=== PATIENT | female | born 1940 | race Caucasian/White ===

== ENCOUNTER 2017-08-20 06:52 | Inpatient (IN) | payer BC, OTHER ==
[2017-08-20 07:08] VITALS: BMI 22.6
[2017-08-20] MEDS ORDERED: ONDANSETRON 4 MG/2 ML VIAL IVPB ONE ×2 (07:12→08:36)
[2017-08-20] MEDS ORDERED: morphine CARPU-JECT 4 MG/1 ML DISP.SYRIN IVPUSH ONE (07:13)
[2017-08-20] MEDS ORDERED: morphine SULFATE 4 MG/ML VIAL ONE (07:14)
[2017-08-20] MEDS ORDERED: ONDANSETRON 4 MG/2 ML VIAL ONE ×2 (07:14→08:36)
--- NOTE | 2017-08-20 07:21 | PDOC ---
History of Present Illness - General Chief Complaint: Injury Stated Complaint: TRIPPED AND FELL INJURING RIGHT HIP Time Seen by Provider: 08/20/17 07:03 - History of Present Illness Initial Comments: 08/20/17 08:00 Chief complaint: Hip injury History of present illness: Patient fell and injured her right hip. Complains of pain over the greater trochanter. Unable to ambulate. Staff at the half-way states that she tripped on a carpet, there was no loss of consciousness, and no sign of injury to the head or neck. Because of dementia, the patient is unable to recall the fall. Review of systems: The patient appears alert in no half to adequately describe her physical symptoms. She denies pain or injury to the head neck chest abdomen spine pelvis or extremities. She denies chest pain, shortness of breath, abdominal pain, vomiting, diarrhea, visual or focal neurologic symptoms, urinary tract symptoms, vaginal bleeding or discharge. She admits mild nausea. Past medical history: According to the medical record obtained from the half-way, the patient has alcoholic dementia, depression, but no neurological or cardiovascular disease. Social history: longterm resident, mild to moderate dementia, daughter lives nearby and visits frequently. No known tobacco alcohol or drug use currently Family history: Unavailable Physical exam: Alert, mildly confused but oriented to person and place, but not time. Patient is not drowsy or lethargic. She is well-developed well-nourished in no acute distress at rest, but with pain in the right hip with any movement. Head atraumatic. PERRLA 4 mm, fundi benign, ENT clear Neck without tenderness or deformity, full range of motion without pain Chest clear to P&A. No chest wall or rib cage tenderness or deformity CV 60 and regular. S1 and S2 normal without murmur rub or gallop pulses full and symmetric no JVD or edema no bruits Abdomen soft nontender without mass or organomegaly Neurological C2 to 12 intact. Strength full and symmetric. No focal sensory or motor deficits. He not assessed Extremities: There is shortening and external rotation of the right leg. There is tenderness over the greater trochanter, but without obvious deformity, swelling, or hematoma. Internal and external rotation of the hip are limited due to pain. There are no distal sensory or motor deficits, and pulses are full Skin clear, no rash, adequate turgor and wet mucous membranes No CCE Impression: Mechanical fall, no evidence of head or neck injury, probable fracture of the right hip. Plan: X-ray and further orthopedic management depending on results. Past History - Past Medical History Allergies/Adverse Reactions: Allergies Allergy/AdvReac Type Severity Reaction Status Date / Time No Known Allergies Allergy Verified 08/20/17 06:54 Home Medications: Ambulatory Orders Docusate Sodium 100 mg PO DAILY 08/20/17 Fluoxetine HCl [Prozac -] 10 mg PO DAILY 08/20/17 Rivastigmine Tartrate [Rivastigmine] 4.5 mg PO BID 08/20/17 COPD: No GI Disorders: Yes (CONSTIPATION) Other medical history: DEPRESSION/ALCOHOLIC DEMENTIA - Suicide/Smoking/Psychosocial Hx Smoking History: Unknown if ever smoked Have you smoked in the past 12 months: No Information on smoking cessation initiated: No Hx Alcohol Use: No Drug/Substance Use Hx: No *Physical Exam - Vital Signs Last Vital Signs Temp Pulse Resp BP Pulse Ox 97.8 F 60 16 158/85 99 08/20/17 07:00 08/20/17 07:00 08/20/17 07:00 08/20/17 07:00 08/20/17 07:00 ED Treatment Course - LABORATORY CBC & Chemistry Diagram: 08/20/17 07:14 08/20/17 07:14 Medical Decision Making - Medical Decision Making 08/20/17 08:21 X-ray reviewed: Fracture of the femoral neck. Chest x-ray clear. Daughter was informed by phone. Dr. Urbina and orthopedist on-call were paged. Patient administered Zofran and morphine. Good pain relief. Comfortable and in no distress awaiting admission. 08/20/17 08:48 EKG: Normal sinus rhythm, normal axes and intervals, no ST-T wave changes, normal EKG Dr. Urbina present in the ER, performed preop evaluation. With her instructions , patient admitted to hospitalist service. Dr. Chambers, orthopedist, contacted for consultation. *DC/Admit/Observation/Transfer Diagnosis at time of Disposition: Hip fracture - Discharge Dispostion Admit: Yes - Referrals - Patient Instructions - Post Discharge Activity
[2017-08-20 07:41] LABS: BASO % 0.5 % (0-2.0); EOS % 1.8 % (0-4.5); HEMATOCRIT 39.8 % (32.4-45.2); HEMOGLOBIN 13.1 GM/dl (10.7-15.3); LYMPH % 24.7 % (8-40); MCH 29.6 pg (25.7-33.7); MEAN CELL VOLUME 89.6 fl (80-96); MEAN PLT VOLUME 8.6 fl (7.5-11.1); MONO % 5.3 % (3.8-10.2); NEUT % 67.7 % (42.8-82.8); PLATELET COUNT 358 K/MM3 (134-434); RBC 4.44 M/mm3 (3.60-5.2); WHITE BLOOD COUNT 13.9 K/mm3 (4.0-10.8)
[2017-08-20 07:53] LABS: ALK PHOS 59 U/L (32-92); ANION GAP 5 (8-16); BLOOD UREA NITROGEN 14 mg/dl (7-18); CALCIUM 9.4 mg/dl (8.4-10.2); CHLORIDE 101 mmol/L (98-107); CO2 26 mmol/L (22-28); CREATININE 0.8 mg/dl (0.6-1.3); GLUCOSE,RANDOM 186 mg/dl (74-106); SGOT/AST 23 U/L (10-42); SGPT/ALT 13 U/L (10-40); SODIUM 132 mmol/L (136-145); TOT PROT 7.2 g/dl (6.4-8.3)
[2017-08-20 08:03] LABS: PH,URINE 5.5 (4.5-8); URINE APPEARANCE Clear; URINE BILIRUBIN Negative (NEGATIVE); URINE GLUCOSE (UA) Negative (NEGATIVE); URINE KETONE Negative (NEGATIVE); URINE LEUK ESTERASE Negative (NEGATIVE); URINE NITRITE Negative (NEGATIVE); URINE PROTEIN Negative (NEGATIVE); URINE UROBILINOGEN 0.2 (0.2-1.0)
[2017-08-20 08:11] LABS: BILIRUBIN,TOTAL 0.5 mg/dl (0.2-1.0)
[2017-08-20 08:15] LABS: URINE BLOOD Trace-lysed (NEGATIVE); URINE COLOR YELLOW
--- NOTE | 2017-08-20 08:49 | HP ---
Admitting History and Physical - Admission Chief Complaint: fall and pain in nara right hip History of Present Illness: 77 yo female with PMH of Depression and Memory loss, was admitted after a fall in [facility] with consequent fracture of the right hip. The patient does not recall the circumstances under which she fell, but thisis not unusual for the patient who has at baseline poor short term memory. 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 Hepatobiliary: Yes: Cholelithiasis - Smoking History Smoking history: Unknown if ever smoked Have you smoked in the past 12 months: No - Alcohol/Substance Use Hx Alcohol Use: No Home Medications - Allergies Allergies/Adverse Reactions: Allergies Allergy/AdvReac Type Severity Reaction Status Date / Time No Known Allergies Allergy Verified 08/20/17 06:54 - Home Medications Home Medications: Ambulatory Orders Docusate Sodium 100 mg PO DAILY 08/20/17 Fluoxetine HCl [Prozac -] 10 mg PO DAILY 08/20/17 Rivastigmine Tartrate [Rivastigmine] 4.5 mg PO BID 08/20/17 Review of Systems - Review of Systems Constitutional: reports: No Symptoms (pain in the right hip) Eyes: reports: No Symptoms HENT: reports: No Symptoms Neck: reports: No Symptoms Cardiovascular: reports: No Symptoms Respiratory: reports: No Symptoms Gastrointestinal: reports: No Symptoms Genitourinary: reports: No Symptoms Breasts: reports: No Symptoms Reported Musculoskeletal: reports: Other (right hip pain) Neurological: reports: No Symptoms Endocrine: reports: No Symptoms Hematology/Lymphatic: reports: No Symptoms Psychiatric: reports: Depression Pain Intensity: 5 Physical Examination Vital Signs: Vital Signs Temperature 97.8 F 08/20/17 07:00 Pulse Rate 60 08/20/17 07:00 Respiratory Rate 16 08/20/17 07:00 Blood Pressure 158/85 08/20/17 07:00 O2 Sat by Pulse Oximetry (%) 99 08/20/17 07:00 Constitutional: Yes: Well Nourished, Calm, Other (mild pain after administration of 4 MG of Morphine , patient i sexamined 2 hour later) HENT: Yes: Atraumatic, Normocephalic Neck: Yes: Supple, Trachea Midline Cardiovascular: Yes: Regular Rate and Rhythm, S1, S2 Respiratory: Yes: Regular, CTA Bilaterally Gastrointestinal: Yes: Normal Bowel Sounds, Soft, Abdomen, Obese. No: Hepatomegaly ...Rectal Exam: Yes: Deferred Breast(s): Yes: WNL Extremities: Yes: Other (right external thigh pain to palpation , external rotyation of nara right lower etxremity and shortening of nara right lower extremity) Edema: No Peripheral Pulses WNL: Yes Integumentary: Yes: WNL Neurological: Yes: Alert, Oriented Psychiatric: Yes: Alert, Oriented Labs: CBC, BMP 08/20/17 07:14 08/20/17 07:14 Imaging - Results Chest X-ray: Other (AL film, no cardiomegaly, no pleural effusion , no infiltrate) X-ray: Other (right hip interthrochanteric fracture) EKG: Other (NSR, 69 b/min,ellis, QRS axis at 60 degrees, good R wave progression , non specific ST T changes) Problem List - Problems (1) Fall on same level, unspecified, initial encounter Assessment/Plan: unsure about circumstances, no LOC Code(s): W18.30XA - FALL ON SAME LEVEL, UNSPECIFIED, INITIAL ENCOUNTER (2) Closed right hip fracture Assessment/Plan: surgical consult the patient is class II ASA medically clear for ORIF NPO pain management Dilaudid Code(s): S72.001A - FRACTURE OF UNSP PART OF NECK OF RIGHT FEMUR, INIT (3) History of short term memory loss Assessment/Plan: alcoholic in etiology the patient ia an ex alcoholic Code(s): Z87.898 - PERSONAL HISTORY OF OTHER SPECIFIED CONDITIONS (4) Depression Code(s): F32.9 - MAJOR DEPRESSIVE DISORDER, SINGLE EPISODE, UNSPECIFIED Assessment/Plan 77 yo feamle s/p fa,ll with RT hip intertrochanteric fracture class II ASA ,medically clear for surgery
[2017-08-20] MEDS ORDERED: D5-1/2NS+10 MEQ KCL - 10 MEQ/1,000 ML INFUS.BAG IV SCH (09:00)
[2017-08-20] MEDS ORDERED: PROCHLORPERAZINE INJECTION 10 MG/2 ML VIAL IVPB PRN (09:05)
--- NOTE | 2017-08-20 09:18 | CON.ORTH ---
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 Hepatobiliary: Yes: Cholelithiasis - Alcohol/Substance Use Hx Alcohol Use: No - Smoking History Smoking history: Unknown if ever smoked Have you smoked in the past 12 months: No Home Medications - Allergies Allergies/Adverse Reactions: Allergies Allergy/AdvReac Type Severity Reaction Status Date / Time No Known Allergies Allergy Verified 08/20/17 06:54 - Home Medications Home Medications: Ambulatory Orders Docusate Sodium 100 mg PO DAILY 08/20/17 Fluoxetine HCl [Prozac -] 10 mg PO DAILY 08/20/17 Rivastigmine Tartrate [Rivastigmine] 4.5 mg PO BID 08/20/17 Physical Exam for Ortho Vital Signs: Vital Signs Temperature 97.8 F 08/20/17 07:00 Pulse Rate 60 08/20/17 07:00 Respiratory Rate 16 08/20/17 07:00 Blood Pressure 158/85 08/20/17 07:00 O2 Sat by Pulse Oximetry (%) 99 08/20/17 07:00 Labs: CBC, BMP 08/20/17 07:14 08/20/17 07:14 INR, PTT INR Cancelled 08/20/17 07:14 - Lower Extremity Hip: Yes: Right, Decreased ROM, Leg Externally Rotated, Leg Shortened, Pain, Swelling, Other (nvi) Imaging - Results X-ray: Image Reviewed Assessment/Plan 77 yo female with PMH of Depression and Memory loss, was admitted after a fall in [facility] with consequent fracture of the right hip. The patient does not recall the circumstances under which she fell, but this is not unusual for the patient who has at baseline poor short term memory. a/p- right displaced femoral neck fx will need right hip hollie Pt is medically cleared OR for today NPO will d/w pts jamshid Fiorella ([facility]) d/w Dr. Chambers
[2017-08-20] MEDS ORDERED: [UNRECOGNIZED DRUG - OTHER] IV SCH (09:30)
[2017-08-20] MEDS ORDERED: DEXTROSE IV SCH (09:30)
[2017-08-20] MEDS ORDERED: POTASSIUM ACETATE IV SCH (09:30)
[2017-08-20 09:38] LABS: EPI CELLS RARE /HPF; URINE RBC 0-2 /hpf (0-3); URINE WBC NONE SEEN (0-5)
[2017-08-20 09:39] LABS: URINE BACTERIA NONE SEEN /hpf (NEGATIVE)
[2017-08-20 09:39] LABS: INR 1.08 (0.82-1.09); PROTHROMBIN TIME (PATIENT) 12.1 SEC (10.2-13.0)
[2017-08-20] MEDS: POTASSIUM CHLORIDE 10 MEQ in DEXTROSE 5%-0.45% SALINE 1,000 ML IVPB SCH ×2 (09:43→22:42)
[2017-08-20] MEDS ORDERED: PANTOPRAZOLE SODIUM 40 MG VIAL ONE (10:18)
[2017-08-20] MEDS: PANTOPRAZOLE SODIUM 40 MG VIAL IVPUSH SCH (10:25)
[2017-08-20] MEDS ORDERED: HYDROmorphone HCL CARPU-JECT 1 MG/1 ML DISP.SYRIN ONE (10:26)
[2017-08-20] MEDS: HYDROmorphone HCL CARPU-JECT 1 MG/1 ML DISP.SYRIN IVPB PRN ×2 (10:30→22:03)
[2017-08-20] MEDS ORDERED: VANCOMYCIN 1,000 MG VIAL (RESTRICTED TO ID ONLY) ONE (13:54)
[2017-08-20] MEDS ORDERED: ceFAZolin SODIUM 1 GM VIAL ONE ×2 (13:54→15:13)
[2017-08-20] MEDS ORDERED: MIDAZOLAM HCL 2 MG/2 ML SINGLE DOSE VIAL ONE (14:36)
[2017-08-20] MEDS ORDERED: PROPOFOL 20 ML ONE (14:44)
[2017-08-20] MEDS ORDERED: VANCOMYCIN 1,000 MG VIAL (RESTRICTED TO ID ONLY) IVPB ONE (15:47)
[2017-08-20] MEDS ORDERED: MAGNESIUM HYDROX 2400MG/30ML ORAL SUSPENSION 30 ML CUP PO PRN (16:01)
[2017-08-20] MEDS ORDERED: MAG HYDROX/AL HYDROX/SIMETH 30 ML UNIT-DOSE CUP PO PRN (16:01)
--- NOTE | 2017-08-20 16:01 | OP ---
Operative Note - Note: Operative Date: 08/20/17 Pre-Operative Diagnosis: displaced right femoral neck fracture Operation: right hip hemiarthroplasty Implants: Gypsy Accolade Hip Samir system: #2 stem, 127 degrees, 46mm head, +4 neck Surgeon: Iker Justin Manager Of Security: Abiel Pompa Anesthesiologist/CYLINDER CHECKER: Jonathan Cruz Anesthesia: Spinal, MAC Specimens Removed: right femoral head Estimated Blood Loss (mls): 75 Drains, Volume Out (mls): 0 Blood Volume Replaced (mls): 0 Fluid Volume Replaced (mls): 700 Operative Report Dictated: Yes
[2017-08-20] MEDS ORDERED: LACTATED RINGERS SOLUTION 1,000 ML IV SCH (16:15)
[2017-08-20] MEDS ORDERED: oxyCODONE HCL 5 MG TABLET PO PRN (16:16)
[2017-08-20] MEDS ORDERED: ONDANSETRON 4 MG/2 ML VIAL IVPUSH PRN (16:16)
[2017-08-20] MEDS ORDERED: PROMETHAZINE HCL 25 MG/1 ML VIAL IVPB PRN (16:16)
[2017-08-20] MEDS: SENNOSIDES/DOCUSATE COMBO (SENNA PLUS) TABLET (UD) PO SCH (22:03)
[2017-08-20] MEDS: CEFAZOLIN 1 GM/D5W 1 GM/50 ML BAG IVPB SCH (22:41)
[2017-08-21] MEDS ORDERED: LACTATED RINGERS SOLUTION 1,000 ML IV SCH (06:00)
[2017-08-21] MEDS: CEFAZOLIN 1 GM/D5W 1 GM/50 ML BAG IVPB SCH (06:23)
[2017-08-21] MEDS: ASPIRIN 325 MG TABLET PO SCH (07:58)
[2017-08-21 08:23] LABS: HEMATOCRIT 31.6 % (32.4-45.2); HEMOGLOBIN 10.4 GM/dl (10.7-15.3); MCH 29.5 pg (25.7-33.7); MEAN CELL VOLUME 89.5 fl (80-96); PLATELET COUNT 268 K/MM3 (134-434); RBC 3.53 M/mm3 (3.60-5.2); RDW 12.9 % (11.6-15.6); WHITE BLOOD COUNT 13.8 K/mm3 (4.0-10.8)
--- NOTE | 2017-08-21 08:54 | OP ---
DATE OF OPERATION: 08/20/2017 PREOPERATIVE DIAGNOSIS: Right displaced femoral neck fracture. POSTOPERATIVE DIAGNOSIS: Right displaced femoral neck fracture. PROCEDURE: Right hip hemiarthroplasty. SURGEON: Iker Justin MD RN BSN: ANNE-MARIE Valladares ANESTHESIOLOGIST: Jonathan Cruz MD ANESTHESIA: Spinal anesthesia with sedation. DRAINS: None. COMPLICATIONS: None. SPECIMENS: Femoral head. BLOOD LOSS: Minimal. BLOOD GIVEN: None. FLUID REPLACEMENT: PlasmaLyte, 700 mL. INDICATIONS: This patient is a 77-year-old female with a preoperative diagnosis of a displaced right femoral neck fracture. After understanding the potential risks, complications, alternatives, and benefits of surgery versus nonsurgical treatment, the patient and her family elected to undergo this procedure, including her daughter, who is her health proxy. All questions and concerns were addressed. They were warned of potential complications potentially exacerbated by her dementia including prosthesis dislocation, inferior ability to ambulate, decreased function, decreased exercise tolerance, poor stair climbing, infection, etc. DESCRIPTION OF PROCEDURE: The patient was brought to the operating room, peripheral IV placed, and IV sedation was given. Ancef 1 g was given. Spinal anesthesia was done. MAC anesthesia was induced. She was placed into the left lateral decubitus position with axillary roll and ample padding throughout. The right lower extremity was prepped and draped in sterile fashion. A curvilinear posterolateral approach incision was marked out with a marking pen. An incision was made with a No. 10 scalpel blade. Subcutaneous hemostasis was achieved with a Bovie cautery. Dissection done down through the superficial fascia down to the hip bursa through the bursa. The leg was put into a position of adduction and internal rotation, putting pressure on the posterior structures. The short external rotators were taken down off the posterior aspect of the femur. A T-capsulotomy was performed. The fractured hematoma was evacuated. A rongeur was used through soft tissue debris. Template was placed in place, marked with Bovie cautery, and the oscillating saw used to make the provisional cut. Bone was removed. Next, corkscrew was used to remove the femoral head. The acetabulum looked absolutely fine. A small amount of fat was removed. A 46 sized head was trialed. This seemed to be excellent as far as suction and fit. Next, the proximal femur was prepared in the standard fashion, first with the box osteotome and then the canal finder, then sequential broaches. The No. 2 sized broach went down to the appropriate level. It was extremely stable. There was no rotation, and the calcar reamer did not even need to be used. We trialed with a standard neck and 46 head. Although stability was excellent, the leg felt slightly short, and therefore we put on a +4 neck, and it seemed to correct this with the same amount of stability. Next, the stem was removed, the canal checked for debris, and a standard Sedley size No. 2 accolade stem was placed down in the standard fashion with the mallet. Again, it was trialed, it seemed to be quite good, and so, the No. 2, 127-degree stem, with a 46-mm head with a 4+ neck was placed hip down onto the Krystian taper, quite stable. It was reduced. Again, the patient had excellent stability in all planes, and leg length was equal. The area was irrigated and washed out, and the posterior capsule closed with No. 1 Vicryl suture. The deep fascia closed with No. 1 Vicryl, the deep dermal layer closed with 2-0 Vicryl, and final skin reapproximation was done with a running subcuticular 3-0 V-Loc suture. The area was then washed and dried, covered with SwiftSet Skin Glue and Aquacel dressing. Total operative time was 35 minutes. There were no complications during the case. The patient tolerated the procedure quite well and was brought to the regular recovery room in stable condition. Mairtza [id number]
--- NOTE | 2017-08-21 09:17 | PN ---
Physical Exam: SUBJECTIVE: Patient seen and examined, sitting in bedside chair, reports pain to the right lower extremity upon movement, patient denies any paresthesia to the extremity. OBJECTIVE: Patient is a 77 yo female with PMH of Depression and Memory loss. Patient was admitted from the emergency department for a right femoral neck fracture, s/p right hip hemiarthoplasty, Dr Justin. Vital Signs Period Temp Pulse Resp BP Sys/Rey Pulse Ox Last 24 Hr 97.8 F-100.0 F 59-114 10-18 81-142/39-74 91-100 GENERAL: The patient is awake, alert, and fully oriented, in no acute distress. HEAD: Normal with no signs of trauma. EYES: PERRL, extraocular movements intact, sclera anicteric, conjunctiva clear. No ptosis. ENT: Ears normal, nares patent, oropharynx clear without exudates, moist mucous membranes. NECK: Trachea midline, full range of motion, supple. LUNGS: Breath sounds equal, clear to auscultation bilaterally, no wheezes, no crackles, no accessory muscle use. HEART: Regular rate and rhythm, S1, S2 without murmur, rub or gallop. ABDOMEN: Soft, nontender, nondistended, normoactive bowel sounds, no guarding, no rebound, no hepatosplenomegaly, no masses. EXTREMITIES: 2+ pulses, warm, well-perfused, no edema. RIGHT LOWER EXTREMITY: aguacel dressing CDI NEUROLOGICAL: Cranial nerves II through XII grossly intact. Normal speech, gait not observed. PSYCH: Normal mood, normal affect. SKIN: Warm, dry, normal turgor, no rashes or lesions noted Laboratory Results - last 24 hr 08/20/17 08/20/17 08/20/17 07:33 08:14 08:14 WBC RBC Hgb Hct MCV MCH MCHC RDW Plt Count MPV PT with INR 12.1 INR 1.08 Urine RBC 0-2 Urine WBC None seen Ur Epithelial Cells Rare Urine Bacteria None seen Blood Type O POSITIVE Antibody Screen Negative 08/20/17 08/21/17 08:14 07:30 WBC 13.8 H RBC 3.53 L D Hgb 10.4 L D Hct 31.6 L D MCV 89.5 MCH 29.5 MCHC 33.0 RDW 12.9 Plt Count 268 MPV 8.0 PT with INR INR Urine RBC Urine WBC Ur Epithelial Cells Urine Bacteria Blood Type O POSITIVE Antibody Screen Active Medications Generic Name Dose Route Start Last Admin Trade Name Freq PRN Reason Stop Dose Admin Al Hydroxide/Mg Hydroxide 30 ml 08/20/17 16:01 Mylanta Oral Suspension - PO Q4H PRN DYSPEPSIA Aspirin 325 mg 08/21/17 08:00 Asa - PO DAILY@0800 [facility] Fentanyl 50 mcg 08/20/17 16:16 Sublimaze Injection - IVPUSH [id number] PRN PAIN-PACU ORDER X 4 DOSES ONLY Hydromorphone HCl 1 mg 08/20/17 08:56 08/20/17 22:03 Dilaudid Injection - IVPB 1 mg Q4H PRN Administration PAIN LEVEL 6-10 Potassium Chloride 10 meq/ 1,005 mls @ 75 mls/hr 08/20/17 09:30 08/20/17 22: 42 Dextrose/Sodium Chloride IVPB 75 mls/hr Q13H MARYSE Administration Lactated Ringer's 1,000 mls @ 125 mls/hr 08/21/17 06:00 08/21/17 06:23 Lactated Ringers Solution IV Not Given ASDIR MARYSE Magnesium Hydroxide 30 ml 08/20/17 16:01 Milk Of Magnesia - PO PRN PRN CONSTIPATION Multivitamins/Minerals/Vitamin C 1 tab 08/21/17 10:00 Tab-A-Vit - PO DAILY [facility] Ondansetron HCl 4 mg 08/20/17 16:16 Zofran Injection IVPUSH Q6H PRN NAUSEA AND/OR VOMITING Pantoprazole Sodium 40 mg 08/20/17 10:00 08/20/17 10:25 Protonix Iv IVPUSH 40 mg DAILY [facility] Administration Pantoprazole Sodium 40 mg 08/21/17 10:00 Protonix - PO DAILY [facility] Prochlorperazine Edisylate 2.5 mg 08/20/17 09:05 08/20/17 09:23 Compazine Injection - IVPB 2.5 mg Q4H PRN Administration NAUSEA AND/OR VOMITING Promethazine HCl 12.5 mg 08/20/17 16:16 Phenergan Injection - IVPB Q6H PRN NAUSEA-FOR RESCUE AFTER 15 MIN Rivastigmine Tartrate 1.5 mg 08/21/17 10:00 Exelon (Nf) - PO BID MARYSE Senna/Docusate Sodium 2 tablet 08/20/17 22:00 08/20/17 22:03 Pericolace - PO 2 tablet BID MARYSE Administration IMAGING Chest xray: AL film, no cardiomegaly, no pleural effusion , no infiltrate xray right hip: interthrochanteric fracture EKG: NSR, 69 b/min,ellis, QRS axis at 60 degrees, good R wave progression, non specific ST T changes ASSESSMENT/PLAN: 1) MS right hip hemiarthroplasty, POD #1 (Nhan) - prn pain medication - PT as per orthopedist - hgb 10.4 stable close monitoring 2) neuro short term memory loss - continue exelon (home dose) - fall precautions f/e/n - regular diet - replete lytes prn ppx - asa 325mg daily - protonix - scd/radha - physical therapy dispo: pt requires inpatient admission, plan discussed with Daughter Fiorella and aggress with plan Visit type - Emergency Visit Emergency Visit: Yes ED Registration Date: 08/20/17 Care time: The patient presented to the Emergency Department on the above date and was hospitalized for further evaluation of their emergent condition. - New Patient This patient is new to me today: No - Critical Care Critical Care patient: No - Discharge Referral Referred to [facility] Med P.C.: No
[2017-08-21] MEDS: MULTIVITAMINS (DAILY MVI) TABLET (FP) PO SCH (09:59)
[2017-08-21] MEDS: PANTOPRAZOLE 40 MG TABLET (FP) PO SCH (09:59)
[2017-08-21] MEDS: SENNOSIDES/DOCUSATE COMBO (SENNA PLUS) TABLET (UD) PO SCH ×2 (09:59→21:41)
[2017-08-21] MEDS: PANTOPRAZOLE SODIUM 40 MG VIAL IVPUSH SCH (10:00)
[2017-08-21 10:43] LABS: HEMATOCRIT 33.4 % (32.4-45.2); HEMOGLOBIN 11.1 GM/dl (10.7-15.3); LYMPH % 6.5 % (8-40); MCH 29.4 pg (25.7-33.7); MCHC 33.2 g/dl (32.0-36.0); MEAN CELL VOLUME 88.8 fl (80-96); MEAN PLT VOLUME 8.4 fl (7.5-11.1); MONO % 6.7 % (3.8-10.2); NEUT % 86.8 % (42.8-82.8); PLATELET COUNT 268 K/MM3 (134-434); RBC 3.76 M/mm3 (3.60-5.2); RDW 12.6 % (11.6-15.6); WHITE BLOOD COUNT 14.3 K/mm3 (4.0-10.8)
[2017-08-21 10:50] LABS: ALK PHOS 47 U/L (32-92); ANION GAP 5 (8-16); BILIRUBIN,TOTAL 0.6 mg/dl (0.2-1.0); BLOOD UREA NITROGEN 8 mg/dl (7-18); CALCIUM 8.5 mg/dl (8.4-10.2); CHLORIDE 102 mmol/L (98-107); CO2 25 mmol/L (22-28); GLUCOSE,RANDOM 160 mg/dl (74-106); MAGNESIUM 1.6 mg/dL (1.8-2.4); POTASSIUM 3.7 mmol/L (3.5-5.1); SGOT/AST 32 U/L (10-42); SGPT/ALT 10 U/L (10-40); SODIUM 132 mmol/L (136-145); TOT PROT 5.8 g/dl (6.4-8.3)
--- NOTE | 2017-08-21 11:07 | PN ---
Progress Note, Physician Chief Complaint: s/p right him hemiarthroplasty History of Present Illness: post op day one. - Current Medication List Current Medications: Active Medications Al Hydroxide/Mg Hydroxide (Mylanta Oral Suspension -) 30 ml PO Q4H PRN PRN Reason: DYSPEPSIA Aspirin (Asa -) 325 mg PO DAILY@0800 [facility] Last Admin: 08/21/17 07:58 Dose: 325 mg Fentanyl (Sublimaze Injection -) 50 mcg IVPUSH [id number] PRN PRN Reason: PAIN-PACU ORDER X 4 DOSES ONLY Hydromorphone HCl (Dilaudid Injection -) 1 mg IVPB Q4H PRN PRN Reason: PAIN LEVEL 6-10 Last Admin: 08/20/17 22:03 Dose: 1 mg Potassium Chloride 10 meq/ (Dextrose/Sodium Chloride) 1,005 mls @ 75 mls/hr IVPB Q13H [facility] Last Admin: 08/20/17 22:42 Dose: 75 mls/hr Magnesium Hydroxide (Milk Of Magnesia -) 30 ml PO PRN PRN PRN Reason: CONSTIPATION Multivitamins/Minerals/Vitamin C (Tab-A-Vit -) 1 tab PO DAILY [facility] Last Admin: 08/21/17 09:59 Dose: 1 tab Ondansetron HCl (Zofran Injection) 4 mg IVPUSH Q6H PRN PRN Reason: NAUSEA AND/OR VOMITING Pantoprazole Sodium (Protonix Iv) 40 mg IVPUSH DAILY [facility] Last Admin: 08/20/17 10:25 Dose: 40 mg Pantoprazole Sodium (Protonix -) 40 mg PO DAILY [facility] Last Admin: 08/21/17 09:59 Dose: 40 mg Prochlorperazine Edisylate (Compazine Injection -) 2.5 mg IVPB Q4H PRN PRN Reason: NAUSEA AND/OR VOMITING Last Admin: 08/20/17 09:23 Dose: 2.5 mg Promethazine HCl (Phenergan Injection -) 12.5 mg IVPB Q6H PRN PRN Reason: NAUSEA-FOR RESCUE AFTER 15 MIN Rivastigmine Tartrate (Exelon (Nf) -) 1.5 mg PO BID [facility] Senna/Docusate Sodium (Pericolace -) 2 tablet PO BID [facility] Last Admin: 08/21/17 09:59 Dose: 2 tablet - Objective Vital Signs: Vital Signs Temperature 100.0 F H 08/21/17 06:00 Pulse Rate 108 H 08/21/17 06:00 Respiratory Rate 18 08/21/17 07:59 Blood Pressure 117/71 08/21/17 06:00 O2 Sat by Pulse Oximetry (%) 94 L 08/21/17 07:59 Cardiovascular: Yes: WNL Respiratory: Yes: WNL Gastrointestinal: Yes: WNL Labs: INR, PTT INR 1.08 (0.82-1.09) 08/20/17 08:14 Assessment/Plan patient doing well, pain controlled, no nausea vomiting questions about anesthesia or anesthetic complications. Dept of anesthesia will sign off care at this time.
[2017-08-21 11:11] LABS: CREATININE 0.8 mg/dl (0.6-1.3)
--- NOTE | 2017-08-21 11:34 | PN ---
Progress Note (short form) - Note Progress Note: AVSS COMFORTABLE BANDAGES DRY AND INTACT CALF SOFT AND NT NVI IMP: SEVERINO WELL PLAN: OOB, PT, DC PLANNING
[2017-08-21] MEDS ORDERED: HYDROmorphone HCL CARPU-JECT 1 MG/1 ML DISP.SYRIN IVPB PRN (12:43)
--- NOTE | 2017-08-21 12:57 | EKG ---
Test Reason : Blood Pressure : / mmHG Vent. Rate : 069 BPM Atrial Rate : 069 BPM P-R Int : 160 ms QRS Dur : 074 ms QT Int : 410 ms P-R-T Axes : 073 058 078 degrees QTc Int : 439 ms NORMAL SINUS RHYTHM NORMAL ECG NO PREVIOUS ECGS AVAILABLE Confirmed by RORO JARRELL MD ([id number]) on 08/21/2017 12:57:04 PM Referred By: CONTRERAS CHARLES Confirmed By:RORO JARRELL MD
--- NOTE | 2017-08-21 12:58 | EKG ---
Test Reason : Blood Pressure : / mmHG Vent. Rate : 084 BPM Atrial Rate : 084 BPM P-R Int : 160 ms QRS Dur : 072 ms QT Int : 372 ms P-R-T Axes : 061 037 062 degrees QTc Int : 439 ms NORMAL SINUS RHYTHM NORMAL ECG NO PREVIOUS ECGS AVAILABLE Confirmed by RORO JARRELL MD ([id number]) on 08/21/2017 12:58:13 PM Referred By: MELODIE GROSS Confirmed By:RORO JARRELL MD
[2017-08-21] MEDS ORDERED: MAGNESIUM SULFATE IN WATER 2 GM/50 ML IVPB IVPB ONE (13:15)
[2017-08-21] MEDS ORDERED: PT OWN MED DRAWER 7, Y5N ONE ×3 (16:57→21:45)
[2017-08-21] MEDS: RIVASTIGMINE TARTRATE 1.5 MG CAPSULE PO SCH (21:41)
[2017-08-22] MEDS: oxyCODONE HCL 5 MG TABLET PO PRN ×2 (05:15→09:50)
[2017-08-22 08:27] LABS: HEMATOCRIT 31.2 % (32.4-45.2); HEMOGLOBIN 10.2 GM/dl (10.7-15.3); MCH 29.3 pg (25.7-33.7); MCHC 32.6 g/dl (32.0-36.0); MEAN CELL VOLUME 89.7 fl (80-96); MEAN PLT VOLUME 8.4 fl (7.5-11.1); PLATELET COUNT 255 K/MM3 (134-434); RBC 3.48 M/mm3 (3.60-5.2); WHITE BLOOD COUNT 16.7 K/mm3 (4.0-10.8)
[2017-08-22] MEDS ORDERED: PT OWN MED DRAWER 7, Y5N ONE (09:47)
[2017-08-22] MEDS: SENNOSIDES/DOCUSATE COMBO (SENNA PLUS) TABLET (UD) PO SCH (09:49)
[2017-08-22] MEDS: PANTOPRAZOLE 40 MG TABLET (FP) PO SCH (09:49)
[2017-08-22] MEDS: MULTIVITAMINS (DAILY MVI) TABLET (FP) PO SCH (09:49)
[2017-08-22] MEDS: ASPIRIN 325 MG TABLET PO SCH (09:49)
[2017-08-22] MEDS: RIVASTIGMINE TARTRATE 1.5 MG CAPSULE PO SCH (09:50)
--- NOTE | 2017-08-22 09:57 | PN ---
Progress Note (short form) - Note Progress Note: Ortho Pt seen and examined s/p right hip hollie pod #2 Selected Entries 08/22/17 06:00 Temperature 98.5 F Pulse Rate 117 H Respiratory 18 Rate Blood Pressure 115/66 Laboratory Tests 08/22/17 08:00 WBC 16.7 H Hgb 10.2 L Hct 31.2 L Plt Count 255 dressing c/d/i, calf soft, nt nvi a/p PT wbat dvt ppx pain control d/c planning
--- NOTE | 2017-08-22 13:31 | DS ---
Physical Exam: SUBJECTIVE: Patient seen and examined, reports minimal pain to the right lower extremity upon movement. OBJECTIVE: 77 yo female with PMH of Depression and Memory loss, was admitted after a fall in [place] with consequent fracture of the right hip. The patient does not recall the circumstances under which she fell, but thisis not unusual for the patient who has at baseline poor short term memory. Vital Signs Period Temp Pulse Resp BP Sys/Rey Pulse Ox Last 24 Hr 98.5 F-98.9 F 83-117 16-18 93-115/55-66 94-95 PHYSICAL EXAM GENERAL: The patient is awake, alert, and fully oriented, in no acute distress. HEAD: Normal with no signs of trauma. EYES: PERRL, extraocular movements intact, sclera anicteric, conjunctiva clear. No ptosis. ENT: Ears normal, nares patent, oropharynx clear without exudates, moist mucous membranes. NECK: Trachea midline, full range of motion, supple. LUNGS: Breath sounds equal, clear to auscultation bilaterally, no wheezes, no crackles, no accessory muscle use. HEART: Regular rate and rhythm, S1, S2 without murmur, rub or gallop. ABDOMEN: Soft, nontender, nondistended, normoactive bowel sounds, no guarding, no rebound, no hepatosplenomegaly, no masses. EXTREMITIES: 2+ pulses, warm, well-perfused, no edema. RIGHT LOWER EXTREMITY: aguacel dressing CDI NEUROLOGICAL: Cranial nerves II through XII grossly intact. Normal speech, gait not observed. PSYCH: Normal mood, normal affect. SKIN: Warm, dry, normal turgor, no rashes or lesions noted LABS Laboratory Results - last 24 hr CBC, BMP 08/22/17 08:00 08/21/17 09:55 IMAGING Chest xray: AL film, no cardiomegaly, no pleural effusion , no infiltrate xray right hip: interthrochanteric fracture EKG: NSR, 69 b/min,ellis, QRS axis at 60 degrees, good R wave progression, non specific ST T changes HOSPITAL COURSE: 1)interthrocantic fracture---> s/pright hip hemiarthroplasty, POD #2 ([place]) - prn pain medication - PT as per orthopedist - hgb 10.4 stable 2) neuro short term memory loss - continue exelon (home dose) - fall precautions ppx - asa 325mg daily - protonix - scd/radha - physical therapy Date of Admission:08/20/17 Date of Discharge: 08/22/17 Minutes to complete discharge: 45 Discharge Summary Reason For Visit: FRACTURE OF HIP Current Active Problems Closed right hip fracture (Acute) Depression (Acute) Fall on same level, unspecified, initial encounter (Acute) Hip fracture (Acute) History of short term memory loss (Acute) Condition: Improved - Instructions Diet, Activity, Other Instructions: Post-op Instructions Call the office for a follow-up appointment in 1 week - [phone] Aspirin 325mg daily for 6 weeks. Apply Graduated Compression Stockings (TEDs) to both lower extremities- remove daily for hygiene ONLY Apply cold packs to affected area for 15 minutes every 2 hours. Patient may ambulate as tolerated-encourage self care (at least every 2-3 hours while awake) with walker Maintain Aquacel (waterproof) dressing to operative wound (will be removed by surgeon at first office visit) Shower with Aquacel dressing in place-if Aquacel integrity compromised, remove and apply dry sterile dressing and notify Orthopedist. DO NOT SHOWER unless Orthopedists approves without Aquacel dressing CONTACT THE OFFICE FOR ANY CHANGE IN YOUR CONDITION (for example-fever greater than 102 degrees,excessive bleeding from operative site, purulent drainage, severe swelling or pain) GO TO THE EMERGENCY ROOM IF THERE IS A MEDICAL EMERGENCY * If you have any questions, please do not hesitate to call the office - [phone]. Referrals: Nicole Urbina MD [Primary Care Provider] - Taye Chambers MD [Staff Physician] - Disposition: VNS/HOME HEALTH CARE - Home Medications Comprehensive Discharge Medication List: Ambulatory Orders Docusate Sodium 100 mg PO DAILY 08/20/17 Fluoxetine HCl [Prozac -] 10 mg PO DAILY 08/20/17 Rivastigmine Tartrate [Rivastigmine] 4.5 mg PO BID 08/20/17 This patient is new to me today: No Emergency Visit: Yes ED Registration Date: 08/20/17 Care time: The patient presented to the Emergency Department on the above date and was hospitalized for further evaluation of their emergent condition. Critical Care patient: No - Discharge Referral Referred to [facility] Med P.C.: No
--- NOTE | 2017-08-22 14:38 | PATH ---
Surgical Pathology Report Patient Name: VIKASH VENCES Med. Rec. #: [id number] /Age/Gender: 1940 (Age: 77) / F Account: [id number] Location: [facility] MED-SURG Taken: 08/20/2017 Received: 08/20/2017 Reported: 08/22/2017 Physicians: Iker Justin M.D. Specimen(s) Received RIGHT FEMORAL HEAD Clinical History Fracture of right hip Final Diagnosis BONE, RIGHT FEMORAL HEAD, REPLACEMENT: BONE WITH INTERSTITIAL HEMORRHAGE CONSISTENT WITH FRACTURE. Electronically Signed Papito Saldaña M.D. Gross Description Received in formalin labeled "right femoral head," is a 4.5 x 4.5 x 3.8 cm femoral head with a small portion of femoral neck attached. There are no areas of eburnation. The articular surface is quiroz-yellow and focally granular. The underlying trabecular bone is focally hemorrhagic. Separately received within the same container is a 2.8 x 2.7 x 2.2 cm hemorrhagic portion of femoral neck. Bait Man sections are submitted in one cassette, following decalcification. 08/21/2017 saudi08/21/2017
[2017-08-22 14:39] VITALS: BP 112/68; PULSE 89; TEMP 98.1
== END 2017-08-22 15:01 | disposition home health service (06) | DRG 470 ==
LOC: FER 06:52 → FM/S 11:19
PROVIDERS: ADMIT Internal Medicine; ATTEND Nurse Practitioner Family
PROC: 0SRR039 Replacement of Right Hip Joint, Femoral Surface with Ceramic Synthetic Substitute, Cemented, Open Approach (ICD-10-PCS; principal; 2017-08-20 15:17)
DX: S72.141A Displaced intertrochanteric fracture of right femur, initial encounter for closed fracture (principal); E87.1 Hypo-osmolality and hyponatremia; E86.1 Hypovolemia; W01.0XXA Fall on same level from slipping, tripping and stumbling without subsequent striking against object, initial encounter; Y93.01 Activity, walking, marching and hiking; Y92.128 Other place in nursing home as the place of occurrence of the external cause; Y99.8 Other external cause status; F03.90 Unspecified dementia, unspecified severity, without behavioral disturbance, psychotic disturbance, mood disturbance, and anxiety
CPT/HCPCS: 36415; 71045-TC-FY; 73502-TC-RT; 73523-TC-FY; 80053; 81003; 81015; 82550; 83735; 84484; 85025; 85027; 85610; 86850; 86900; 86901; 88305-TC; 88311-TC; 93005; 94760; 97116-GP; 97162-GP; 99284-25